=== PATIENT | female | born 1975 | race Caucasian/White ===

== ENCOUNTER 2020-10-22 15:53 | Emergency (ER) | payer OTHER ==
[~2020-10-22] VITALS: Ht 162.6 cm; Wt 77.1 kg
[2020-10-22 16:00] VITALS: BP 134/100
--- NOTE | 2020-10-22 16:08 | NUR ---
PT AMBULATED TO BED 1.
[2020-10-22] MEDS ORDERED: NACL 0.9% 1,000 ML IV SCH (16:20)
[2020-10-22] MEDS ORDERED: ONDANSETRON 4 MG/2 ML VIAL IVP ONE (16:20)
--- NOTE | 2020-10-22 16:21 | NUR ---
44/F presents to ED with c/o abdominal pain. Patient states she has had worsening abdominal pain since last Tuesday accompanied with nausea, vomiting and diarrhea. Patient states she has been taking Pepto and Tylenol at home but states "I can't keep anything down." Patient describes it as 8/10 pressure pain in her abdomen, states she had 3 episodes of diarrhea on Tuesday but has not had a bowel movement since. Denies dysuria or hematuria, denies chest pain or shortness of breath.
[2020-10-22] MEDS ORDERED: DICYCLOMINE 10 MG CAP PO ONE (16:45)
[2020-10-22] MEDS ORDERED: NACL 0.9% 1,000 ML IV ONE (16:45)
[2020-10-22 16:54] LABS: BASOPHILS % (AUTO) 0.7 % (0.0-2.0); EOSINOPHILS % (AUTO) 0.7 % (0.0-4.0); HEMATOCRIT 39.5 % (36-48); HEMOGLOBIN 13.2 g/dL (12.0-16.0); LYMPHOCYTES # (AUTO) 1.7 K/uL (2.5-16.5); LYMPHOCYTES % (AUTO) 28.6 % (20.5-51.1); MEAN CORPUSCULAR HEMOGLOBIN 30 pg (27-31); MEAN CORPUSCULAR HGB CONC 33 g/dL (33-37); MONOCYTES # (AUTO) 0.4 K/uL (0.8-1.0); MONOCYTES % (AUTO) 6.2 % (1.7-9.3); NEUTROPHILS # (AUTO) 3.7 K/uL (1.8-7.7); NEUTROPHILS % (AUTO) 63.8 % (42.2-75.2); PLATELET COUNT (AUTO) 310 K/uL (140-450); RED BLOOD CELL COUNT(AUTO) 4.34 MIL/uL (4.20-5.40); RED CELL DISTRIBUTION WIDTH 12.9 % (11.6-13.7); WHITE BLOOD COUNT (AUTO) 5.9 K/uL (4.8-10.8)
[2020-10-22 17:29] LABS: ALBUMIN 3.2 g/dL (3.4-5.0); ANION GAP 14.5 (8-16); CARBON DIOXIDE 25.3 mmol/L (21-32); POTASSIUM 4.8 mmol/L (3.5-5.1); TOTAL BILIRUBIN 0.3 mg/dL (0.0-1.0)
[2020-10-22] MEDS ORDERED: INSULIN REGULAR, HUMAN 100 UNIT/ML VIAL SUBQ ONE (18:00)
[2020-10-22] MEDS ORDERED: MORPHINE SULFATE 4 MG/ML SYR IVP ONE (18:05)
[2020-10-22] MEDS ORDERED: PROCHLORPERAZINE 10 MG/2 ML VIAL IVP ONE (18:05)
--- NOTE | 2020-10-22 18:21 | NUR ---
Patient taken by wheel chair to CT
[2020-10-22] MEDS ORDERED: FAMO-90 PO ×2 (19:11→19:13)
[2020-10-22] MEDS ORDERED: NAPR-54 PO (19:11)
[2020-10-22] MEDS ORDERED: ONDA-24 SL ×2 (19:11→19:13)
--- NOTE | 2020-10-22 19:14 | NUR ---
Pt report given to Starla. Transfer of care at this time.
--- NOTE | 2020-10-22 19:15 | NUR ---
returned to room from bathroom. ambulates with steady gait
[2020-10-22 19:35] VITALS: BP 144/76
--- NOTE | 2020-10-22 19:35 | NUR ---
Patient discharged with v/s stable. Written and verbal after care instructions given and explained. IV D/C'D, CATHETER INTACT Patient alert, oriented and verbalized understanding of instructions. Ambulatory with steady gait. All questions addressed prior to discharge. ID band removed. Patient advised to follow up with PMD. Rx of PEPCI & ZOFRAN given. Patient educated on indication of medication including possible reaction and side effects. Opportunity to ask questions provided and answered.
== END 2020-10-22 19:35 | disposition home or self-care (01) ==
LOC: MED 15:53
DX: R11.2 Nausea with vomiting, unspecified (principal); R10.9 Unspecified abdominal pain; R14.0 Abdominal distension (gaseous); R23.3 Spontaneous ecchymoses; E11.9 Type 2 diabetes mellitus without complications; Z79.899 Other long term (current) drug therapy; Z88.6 Allergy status to analgesic agent; Z88.5 Allergy status to narcotic agent
CPT/HCPCS: 36415; 74176; 80053; 81002; 81025; 82948; 83690; 85025; 96361; 96372; 96374; 96375; 99284; J0780; J1815; J2270; J2405; J7030; 99285

== ENCOUNTER 2021-07-06 10:58 | Emergency (ER) | payer OTHER ==
[~2021-07-06] VITALS: Ht 162.6 cm; Wt 80.7 kg
[~2021-07-06 10:58] MED LIST: FAMO-90 PO; ONDA-188 SL
[2021-07-06 11:02] VITALS: BP 116/84
--- NOTE | 2021-07-06 12:00 | NUR ---
PATIENT PRESENTS TO ED WITH ULQ PAIN AND DIARRHEA X 4 DAYS. PT STATES HER PAIN IS SHARP, AND FEELS PRESSURE. SKIN IS PINK/WARM/DRY; AAOX4 WITH EVEN AND STEADY GAIT; PATIENT STATES PAIN OF 10/10 AT THIS TIME AND ABD IS TENDER TO TOUCH; VSS; PATIENT POSITIONED FOR COMFORT; HOB ELEVATED; BEDRAILS UP X2; BED DOWN. ER MD MADE AWARE OF PT STATUS. ALLERGY: IBUPROFEN, ASPRIN, DIALODID, CIPRO MED HX: DIABETIC,CHRONIC BACK PAIN MEDS: METFORMIN, HUMALOG, INSULIN, NORCO, TRAMADOL, METRPROPOLOL
--- NOTE | 2021-07-06 12:07 | NUR ---
DR SMITH AT BEDSIDE EXAMINING PT
--- NOTE | 2021-07-06 12:10 | NUR ---
BLOOD WORK COLLECTED AND SENT TO LAB
--- NOTE | 2021-07-06 12:13 | NUR ---
PT TAKEN TO CT SCAN VIA W/C
--- NOTE | 2021-07-06 12:26 | NUR ---
PT RETURNED FROM CT
[2021-07-06 12:34] LABS: BASOPHILS % (AUTO) 0.3 % (0.0-2.0); EOSINOPHILS # (AUTO) 0.2 K/uL (0-0.4); HEMATOCRIT 43.4 % (36-48); HEMOGLOBIN 14.4 g/dL (12.0-16.0); MEAN CORPUSCULAR HEMOGLOBIN 30 pg (27-31); MEAN CORPUSCULAR HGB CONC 33 g/dL (33-37); MEAN CORPUSCULAR VOLUME 89.3 fL (80-94); MONOCYTES # (AUTO) 0.4 K/uL (0.8-1.0); MONOCYTES % (AUTO) 5.5 % (1.7-9.3); NEUTROPHILS # (AUTO) 5.7 K/uL (1.8-7.7); NEUTROPHILS % (AUTO) 77.2 % (42.2-75.2); PLATELET COUNT (AUTO) 296 K/uL (140-450); RED BLOOD CELL COUNT(AUTO) 4.86 MIL/uL (4.20-5.40); RED CELL DISTRIBUTION WIDTH 13.2 % (11.6-13.7); WHITE BLOOD COUNT (AUTO) 7.4 K/uL (4.8-10.8)
[2021-07-06] MEDS: ONDANSETRON 4 MG/2 ML VIAL IVP ONE (12:43)
[2021-07-06] MEDS: MORPHINE SULFATE 4 MG/ML SYR IVP ONE ×2 (12:43→14:04)
[2021-07-06] MEDS ORDERED: DICYCLOMINE HCL LIQUID 10 MG/5 ML UDC ONE (12:50)
[2021-07-06] MEDS ORDERED: ALUMINUM HYD/MAG/SIMETHICONE 30 ML UDC ONE (12:50)
[2021-07-06] MEDS: DICYCLOMINE HCL LIQUID 20 MG, ALUMINUM HYD/MAG/SIMETHICONE 30 ML, LIDOCAINE VISCOUS 2% ... PO ONE ×3 (12:54)
[2021-07-06 13:02] LABS: ALBUMIN 3.4 g/dL (3.4-5.0); ANION GAP 15.3 (8-16); CARBON DIOXIDE 23.2 mmol/L (21-32); CREATININE 0.8 mg/dL (0.6-1.3); POTASSIUM 3.5 mmol/L (3.5-5.1); TOTAL BILIRUBIN 0.4 mg/dL (0.0-1.0)
[2021-07-06] MEDS: NACL 0.9% 1,000 ML IV ONE (13:38)
[2021-07-06] MEDS ORDERED: MAG-27 PO (13:52)
[2021-07-06] MEDS ORDERED: BEN10 PO (13:52)
[2021-07-06 13:56] VITALS: BP 143/93
--- NOTE | 2021-07-06 14:42 | NUR ---
Patient discharged with v/s stable. Written and verbal after care instructions given and explained. Patient alert, oriented and verbalized understanding of instructions. Ambulatory with steady gait. All questions addressed prior to discharge. ID band removed. Patient advised to follow up with PMD. Rx of Bentyl & Mylanta given. Patient educated on indication of medication including possible reaction and side effects. Opportunity to ask questions provided and answered.
== END 2021-07-06 14:40 | disposition home or self-care (01) ==
LOC: MED 10:58
DX: R10.12 Left upper quadrant pain (principal); R19.7 Diarrhea, unspecified; R11.10 Vomiting, unspecified; I51.9 Heart disease, unspecified; E11.9 Type 2 diabetes mellitus without complications; Z88.6 Allergy status to analgesic agent; Z88.1 Allergy status to other antibiotic agents; Z88.5 Allergy status to narcotic agent
CPT/HCPCS: 36415; 74176; 80053; 81002; 81025; 83690; 85025; 96361; 96374; 96375; 96376; 99284; J2270; J2405; J7030

== ENCOUNTER 2021-07-17 20:11 | Emergency (ER) | payer OTHER ==
[~2021-07-17] VITALS: Ht 162.6 cm; Wt 72.6 kg
[~2021-07-17 20:11] MED LIST changes: +BEN10 PO; +MAG-27 PO
[2021-07-17 20:34] VITALS: BP 132/95
--- NOTE | 2021-07-17 20:34 | NUR ---
TO BED AMBULATORY
--- NOTE | 2021-07-17 20:43 | NUR ---
45 yo f bib self with c/c of 10/10 left abd pain that radiates to left of back xlast night. pt states she was here 2wks ago and was told her CT and LABS came back normal. reports she has an edoscopy scheduled but unable to stand the pain at this time. reports diarrhea, denies blood in stool. denies n/v. states she took tylenol with no relief. abd is soft and round, bowel sounds active x4. pt in gown. unable to give urine at this time. pt given water. hx:dm rx:metformin, lantus and humalog allergies: ibuprofen, apsirin, cipro, dilaudid
[2021-07-17] MEDS ORDERED: DICYCLOMINE HCL LIQUID 20 MG, ALUMINUM HYD/MAG/SIMETHICONE 30 ML, LIDOCAINE VISCOUS 2% ... PO ONE ×3 (21:05)
[2021-07-17] MEDS ORDERED: ONDANSETRON 4 MG ODT PO ONE (21:05)
[2021-07-17] MEDS ORDERED: ALUMINUM HYD/MAG/SIMETHICONE 30 ML UDC ONE (21:07)
[2021-07-17] MEDS ORDERED: DICYCLOMINE HCL LIQUID 10 MG/5 ML UDC ONE (21:07)
--- NOTE | 2021-07-17 21:15 | NUR ---
PT MEDICATED PER ORDERS. LABS COLLECTED AND GIVEN TO RICARDO.
[2021-07-17] MEDS ORDERED: NACL 0.9% 1,000 ML IV ONE (21:25)
[2021-07-17] MEDS ORDERED: INSULIN REGULAR, HUMAN 100 UNIT/ML VIAL SUBQ ONE (21:25)
[2021-07-17 21:33] LABS: BASOPHILS # (AUTO) 0.1 K/uL (0.00-0.22); BASOPHILS % (AUTO) 1.2 % (0.0-2.0); EOSINOPHILS # (AUTO) 0.3 K/uL (0-0.4); EOSINOPHILS % (AUTO) 2.9 % (0.0-4.0); HEMOGLOBIN 13.9 g/dL (12.0-16.0); LYMPHOCYTES # (AUTO) 2.1 K/uL (2.5-16.5); LYMPHOCYTES % (AUTO) 23.2 % (20.5-51.1); MEAN CORPUSCULAR HEMOGLOBIN 30 pg (27-31); MEAN CORPUSCULAR HGB CONC 34 g/dL (33-37); MEAN CORPUSCULAR VOLUME 87.9 fL (80-94); MONOCYTES # (AUTO) 0.5 K/uL (0.8-1.0); MONOCYTES % (AUTO) 5.9 % (1.7-9.3); NEUTROPHILS # (AUTO) 6.1 K/uL (1.8-7.7); NEUTROPHILS % (AUTO) 66.8 % (42.2-75.2); PLATELET COUNT (AUTO) 333 K/uL (140-450); RED BLOOD CELL COUNT(AUTO) 4.66 MIL/uL (4.20-5.40); RED CELL DISTRIBUTION WIDTH 13.4 % (11.6-13.7); WHITE BLOOD COUNT (AUTO) 9.2 K/uL (4.8-10.8)
[2021-07-17 21:52] LABS: ALBUMIN 3.3 g/dL (3.4-5.0); ANION GAP 15.9 (8-16); CARBON DIOXIDE 23.3 mmol/L (21-32); CREATININE 0.6 mg/dL (0.6-1.3); POTASSIUM 4.2 mmol/L (3.5-5.1); TOTAL BILIRUBIN 0.3 mg/dL (0.0-1.0)
--- NOTE | 2021-07-17 22:01 | NUR ---
PT REPORTS PAIN CONTINUES 02/01, I ASKED PT WHAT WORKED FOR HER THE LAST TIME SHE WAS HERE, PT STATED "A MEDICATION THAT WENT THROUGH THE IV AND MADE ME FEEL WARM" I ASKED PT IF IT WAS MORPHINE AND PT SAID "YES I THINK THAT WAS IT". UPDATED ON PAIN STATUS.
[2021-07-17] MEDS ORDERED: MORPHINE SULFATE 4 MG/ML SYR IVP ONE (22:15)
[2021-07-17] MEDS ORDERED: diphenhydrAMINE 50 MG/ML VIAL IVP ONE (22:15)
[2021-07-17] MEDS ORDERED: ONDA-188 PO (22:18)
[2021-07-17] MEDS ORDERED: MAG355OR2 PO (22:18)
--- NOTE | 2021-07-17 22:38 | NUR ---
URINE TAKEN TO LAB.
[2021-07-17 22:41] LABS: APPEARANCE,URINE HAZY (CLEAR); BILIRUBIN,URINE NEGATIVE (NEGATIVE); BLOOD, URINE TRACE-I (NEGATIVE); COLOR,URINE YELLOW (YELLOW); LEUKOCYTE ESTERASE ,URINE NEGATIVE (NEGATIVE); NITRITE, URINE NEGATIVE (NEGATIVE); UGLUCOSE 3+ (NEGATIVE)
[2021-07-17] MEDS ORDERED: FAMOTIDINE 20 MG/2 ML VIAL IVP ONE (23:00)
[2021-07-17 23:04] LABS: CALCIUM OXALATE CRYSTALS,UR 0-10 /HPF (None Seen); RBC,URINE 0-5 /HPF (0-5); YEAST,URINE Few /HPF (None Seen)
--- NOTE | 2021-07-17 23:40 | NUR ---
Patient discharged with v/s stable. Written and verbal after care instructions given and explained. Patient alert, oriented and verbalized understanding of instructions. Ambulatory with steady gait. All questions addressed prior to discharge. ID band removed. Patient advised to follow up with PMD. Rx of MAG HYDROX/AL HYDROX/SIMETH, ONDANSETRON given. Patient educated on indication of medication including possible reaction and side effects. Opportunity to ask questions provided and answered.
[2021-07-17 23:43] VITALS: BP 172/95
== END 2021-07-17 23:40 | disposition home or self-care (01) ==
LOC: MED 20:11
DX: K29.70 Gastritis, unspecified, without bleeding (principal); E11.65 Type 2 diabetes mellitus with hyperglycemia; Z79.899 Other long term (current) drug therapy; Z88.1 Allergy status to other antibiotic agents; Z88.5 Allergy status to narcotic agent; Z88.8 Allergy status to other drugs, medicaments and biological substances; Z88.6 Allergy status to analgesic agent
CPT/HCPCS: 36415; 80053; 81001; 81025; 82803; 83690; 85025; 87086; 96361; 96372; 96374; 96375; 99284; J1200; J1815; J2270; J3490; Q0162; J7030

== ENCOUNTER 2021-07-24 07:16 | Day surgery (SDC) | payer OTHER, SELFPAY ==
[~2021-07-24] VITALS: Ht 162.6 cm; Wt 74.4 kg
[~2021-07-24 07:16] MED LIST changes: +MAG355OR2 PO; +ONDA-188 PO
[2021-07-24] MEDS ORDERED: MIDAZOLAM 5 MG/5 ML VIAL ONE (09:23)
[2021-07-24] MEDS ORDERED: fentaNYL citrate 0.05 MG/ML VIAL ONE (09:23)
[2021-07-24] MEDS ORDERED: LIDOCAINE 2% 100 MG/5 ML UJET TP ONE (09:23)
[2021-07-24] MEDS ORDERED: fentaNYL citrate 0.05 MG/ML VIAL IVP ONE (11:30)
[2021-07-24] MEDS ORDERED: MIDAZOLAM 2 MG/2 ML VIAL IVP ONE (11:30)
== END 2021-07-24 10:32 | disposition home or self-care (01) ==
LOC: MMU 07:16 → MDS 07:16
PROVIDERS: ATTEND Internal Medicine Gastroenterology
DX: Z12.11 Encounter for screening for malignant neoplasm of colon (principal); K29.70 Gastritis, unspecified, without bleeding; K52.9 Noninfective gastroenteritis and colitis, unspecified; Z80.0 Family history of malignant neoplasm of digestive organs; E11.9 Type 2 diabetes mellitus without complications; E78.00 Pure hypercholesterolemia, unspecified; Z90.49 Acquired absence of other specified parts of digestive tract; G89.29 Other chronic pain; Z88.5 Allergy status to narcotic agent; Z88.6 Allergy status to analgesic agent; Z88.8 Allergy status to other drugs, medicaments and biological substances; Z79.4 Long term (current) use of insulin; Z79.899 Other long term (current) drug therapy
CPT/HCPCS: 36415; 43239; 45378; 86677; 87426; J2250; J3010

== ENCOUNTER 2022-04-22 13:01 | Emergency (ER) | payer OTHER ==
[~2022-04-22] VITALS: Ht 162.6 cm; Wt 74.8 kg
[2022-04-22 13:17] VITALS: BP 113/70
--- NOTE | 2022-04-22 13:23 | NUR ---
PT AMBULATED TO BED 2. URINE COLLECTED
[2022-04-22] MEDS ORDERED: MORPHINE SULFATE 4 MG/ML SYR IM ONE (13:45)
[2022-04-22] MEDS ORDERED: ONDANSETRON 4 MG ODT PO ONE (13:45)
[2022-04-22 14:10] LABS: BASOPHILS # (AUTO) 0.1 K/uL (0.00-0.22); BASOPHILS % (AUTO) 1.1 % (0.0-2.0); EOSINOPHILS # (AUTO) 0.1 K/uL (0-0.4); EOSINOPHILS % (AUTO) 1.5 % (0.0-4.0); HEMOGLOBIN 14.6 g/dL (12.0-16.0); LYMPHOCYTES # (AUTO) 1.9 K/uL (2.5-16.5); LYMPHOCYTES % (AUTO) 29.7 % (20.5-51.1); MEAN CORPUSCULAR HEMOGLOBIN 30 pg (27-31); MEAN CORPUSCULAR HGB CONC 34 g/dL (33-37); MEAN CORPUSCULAR VOLUME 87.8 fL (80-94); MONOCYTES # (AUTO) 0.3 K/uL (0.8-1.0); MONOCYTES % (AUTO) 5.1 % (1.7-9.3); NEUTROPHILS % (AUTO) 62.6 % (42.2-75.2); PLATELET COUNT (AUTO) 287 K/uL (140-450); RED CELL DISTRIBUTION WIDTH 12.8 % (11.6-13.7); WHITE BLOOD COUNT (AUTO) 6.4 K/uL (4.8-10.8)
--- NOTE | 2022-04-22 14:15 | NUR ---
46F presents to ED with c/o RLQ ABD pain x3days. Pt reports pain began Tueday, sharp pinch like, and subsided; pain returned last night as pressure like pain with chills. Pt reports 1 episode of vomiting yesterday, and nausea today. Pt took Tylenol at 1000 with no relief. Pt denies fevers, UTI symptoms, low back pain, or diarrhea. Pt changed into a gown and placed on bedside monitor.
[2022-04-22 14:29] LABS: ALBUMIN 2.9 g/dL (3.4-5.0); ANION GAP 16.1 (8-16); CARBON DIOXIDE 23.1 mmol/L (21-32); CREATININE 0.8 mg/dL (0.6-1.3); POTASSIUM 4.2 mmol/L (3.5-5.1); TOTAL BILIRUBIN 0.3 mg/dL (0.0-1.0)
[2022-04-22] MEDS ORDERED: HYDR-5191 PO (16:25)
[2022-04-22] MEDS ORDERED: MORPHINE SULFATE 10 MG/ML VIAL IM ONE (16:40)
[2022-04-22] MEDS: MORPHINE SULFATE 4 MG/ML SYR IVP ONE ×2 (16:43→16:58)
[2022-04-22] MEDS ORDERED: MORPHINE SULFATE 4 MG/ML SYR IM SCH (16:50)
[2022-04-22 17:10] VITALS: BP 132/78
--- NOTE | 2022-04-22 17:10 | NUR ---
Patient discharged with v/s stable. Written and verbal after care instructions given and explained. Patient alert, oriented and verbalized understanding of instructions. Ambulatory with steady gait. All questions addressed prior to discharge. ID band removed. Patient advised to follow up with PMD. Rx of Hydrocodone/Acetaminophen given. Patient educated on indication of medication including possible reaction and side effects. Opportunity to ask questions provided and answered.
== END 2022-04-22 17:10 | disposition home or self-care (01) ==
LOC: MED 13:01
DX: R10.31 Right lower quadrant pain (principal); E11.9 Type 2 diabetes mellitus without complications; Z79.899 Other long term (current) drug therapy; Z88.1 Allergy status to other antibiotic agents; Z88.6 Allergy status to analgesic agent; Z88.8 Allergy status to other drugs, medicaments and biological substances; Z88.5 Allergy status to narcotic agent
CPT/HCPCS: 36415; 74176; 76830; 80053; 81025; 83605; 85025; 96372; 99285; J2270; Q0092; Q0162

== ENCOUNTER 2022-10-30 17:53 | Emergency (ER) | payer OTHER ==
[~2022-10-30] VITALS: Ht 162.6 cm; Wt 81.6 kg
[~2022-10-30 17:53] MED LIST changes: +HYDR-5191 PO
[2022-10-30 18:29] VITALS: BP 102/83; PULSE 99; RESP 18; TEMP 98.1; O2SAT 100
--- NOTE | 2022-10-30 18:37 | NUR ---
EVALUATED PT IN TRIAGE.
--- NOTE | 2022-10-30 18:39 | NUR ---
PT W/C ASSISTED TO BED 2
--- NOTE | 2022-10-30 18:40 | NUR ---
46YO FEMALE PT C/O R SIDED BODY PAIN XLASTNIGHT. REPORTS ONSET S/P MECH FALL DOWN STAIRS AT [employer] +HEADINJURY+LOC-BLOODTHINNERS. PAIN AT MOST ON MOVEMENT. ABRASIONS NOTED [place]NEES. NO VISIBLE INJURIES OR DEFORMITIES. DENIES N/V/D, CHEST PAIN, NUMBING ,LOSS OF SENSATION OR RELIEF AFTER TRAMADOL. PT AAOX4, HOB POSITIONED PER COMFORT. CALL LIGHT WITHIN REACH. HX: DM ALLERGIES: ASPIRIN, DIALUDID, CIPRO, IBUPROFEN
[2022-10-30] MEDS ORDERED: MORPHINE SULFATE 4 MG/ML SYR IM ONE ×2 (18:45→20:40)
--- NOTE | 2022-10-30 19:08 | NUR ---
xray at bedside
--- NOTE | 2022-10-30 19:29 | NUR ---
REPORT GIVEN TO ZAY JOYNER. ASSUMED CARE AT THIS TIME
[2022-10-30] MEDS ORDERED: NAPR-54 PO (20:57)
[2022-10-30 21:23] VITALS: BP 128/76; PULSE 68; RESP 16; TEMP 98.1; O2SAT 99
--- NOTE | 2022-10-30 21:23 | NUR ---
Patient discharged with v/s stable. Written and verbal after care instructions given and explained. Patient alert, oriented and verbalized understanding of instructions. Wheel Chair Assisted with to car. All questions addressed prior to discharge. ID band removed. Patient advised to follow up with PMD. Rx of NAPROSYN given. Patient educated on indication of medication including possible reaction and side effects. Opportunity to ask questions provided and answered.
== END 2022-10-30 21:23 | disposition home or self-care (01) ==
LOC: MED 17:53
DX: S80.212A Abrasion, left knee, initial encounter (principal); S80.211A Abrasion, right knee, initial encounter; S09.90XA Unspecified injury of head, initial encounter; E11.9 Type 2 diabetes mellitus without complications; I11.0 Hypertensive heart disease with heart failure; Z79.82 Long term (current) use of aspirin; Z88.5 Allergy status to narcotic agent; Z88.8 Allergy status to other drugs, medicaments and biological substances; Z79.899 Other long term (current) drug therapy; Z79.4 Long term (current) use of insulin; W18.30XA Fall on same level, unspecified, initial encounter; Y93.89 Activity, other specified; Y92.89 Other specified places as the place of occurrence of the external cause; Y99.8 Other external cause status
CPT/HCPCS: 70450; 73562; 96372; 99285; J2270; Q0092